=== PATIENT | male | born 1995 | race Caucasian/White ===

== ENCOUNTER 2018-07-23 14:39 | Emergency (ER) | payer BC ==
[2018-07-23 15:27] VITALS: BP 105/66
--- NOTE | 2018-07-23 15:31 | UC ---
Throat Pain/Nasal Shawn HPI - HPI Summary HPI Summary: 22 yo male presents with sinus symptoms and GI upset. He tells me that about 2 weeks ago he developed sinus pain/pressure/congestion that has resolved. He mentions that he still have a lot of post nasal drip, but his sinuses are feeling better. Starting 5 days ago he has felt nauseous and has vomited at once or twice a day. He is eating and drinking, but doesn't have much of an appetite. He denies fever, chills, cough, sore throat, SOB, chest pain, abdominal pain, diarrhea, constipation, dysuria. - History of Current Complaint Chief Complaint: UCGI Stated Complaint: NAUSEA,RUNNY NOSE Time Seen by Provider: 07/23/18 15:31 Hx Obtained From: Patient Onset/Duration: Gradual Onset Pain Intensity: 0 - Allergies/Home Medications Allergies/Adverse Reactions: Allergies Allergy/AdvReac Type Severity Reaction Status Date / Time environmental Allergy Congestion Uncoded 07/23/18 15:27 PMH/Surg Hx/FS Hx/Imm Hx - Additional Past Medical History Additional PMH: None - Surgical History Surgical History: None - Family History Known Family History: Positive: None - Social History Occupation: Student Lives: Dormitory/Roommates Alcohol Use: None Substance Use Type: None Smoking Status (MU): Never Smoked Tobacco - Immunization History Vaccination Up to Date: Yes Review of Systems Constitutional: Negative Skin: Negative Eyes: Negative ENT: Negative Respiratory: Negative Cardiovascular: Negative Gastrointestinal: Vomiting, Nausea Genitourinary: Negative Neurovascular: Negative Neurological: Negative Psychological: Negative All Other Systems Reviewed And Are Negative: Yes Physical Exam - Summary Physical Exam Summary: GENERAL: NAD. WDWN. No pain distress. SKIN: No rashes, sores, lesions, or open wounds. NECK: Supple. Nontender. No lymphadenopathy. CHEST: CTAB. No r/r/w. No accessory muscle use. Breathing comfortably and in no distress. CV: RRR. Without m/r/g. Pulses intact. Cap refill <2seconds ABDOMEN: Soft. NTTP. No distention or guarding. No organomegaly. No CVA tenderness. Bowel sounds present NEURO: Alert. PSYCH: Age appropriate behavior. Triage Information Reviewed: Yes Vital Signs: Initial Vital Signs Temp 98.5 F 07/23/18 15:24 Pulse 69 07/23/18 15:24 Resp 18 10/11/18 15:24 BP 105/66 07/23/18 15:24 Pulse Ox 99 07/23/18 15:24 Vital Signs Reviewed: Yes Throat Pain/Nasal Course/Dx - Course Course Of Treatment: He is afebrile, nontoxic appearing, and has no pain/ tenderness in his abdomen. Suspect gastroenteritis. Rx for omeprazole and zofran. Advised that if his symptoms persist or worsen to go to the ED for further evaluation. - Differential Dx/Diagnosis Provider Diagnoses: Gastroenteritits Discharge - Sign-Out/Discharge Documenting (check all that apply): Patient Departure All imaging exams completed and their final reports reviewed: No Studies - Discharge Plan Condition: Stable Disposition: HOME Prescriptions: Omeprazole CAP* [Prilosec CAP* 20 MG] 20 mg PO DAILY #30 cap. Ondansetron ODT TAB* [Zofran 4 MG Odt TAB*] 4 mg PO Q8H PRN #16 tab.odt PRN Reason: Nausea Patient Education Materials: Gastroenteritis (ED) Forms: *School Release Referrals: Thalia Gant NP [Primary Care Provider] - Additional Instructions: If you develop a fever, shortness of breath, chest pain, new or worsening symptoms - please call your PCP or go to the ED. - Billing Disposition and Condition Condition: STABLE Disposition: Home
== END 2018-07-23 15:47 | disposition home or self-care (01) ==
LOC: UCCORT 14:39
DX: K52.9 Noninfective gastroenteritis and colitis, unspecified (principal)
CPT/HCPCS: 99202; G0463